=== PATIENT | male | born 1955 | race Caucasian/White ===

== ENCOUNTER 2020-01-08 12:45 | Outpatient (CLI) | payer BC ==
--- NOTE | 2020-01-08 14:49 | MRI ---
Exam: MRI cervical spine without contrast HISTORY: Neck pain. Right arm numbness and weakness since mid October 2019. COMPARISON: None FINDINGS: Appropriate T1 marrow signal intensity of the cervical vertebra. Cervical spine vertebral body heigh ts are maintained. No fracture. No significant STIR hyperintensity suggest vertebral body edema or ligamentous injury. Straightening of cervical lordosis is presumed be positional Visualized brain parenchyma, cervicomedullary junction and cervical cord and the upper thoracic cord have normal size and signal intensity. Spondylolisthesis: C3-C4: 1.8 mm of anterolisthesis. C2-C3: Adequate disc hydration. No significant loss of disc space height. Minimal posterior disc william iation. No significant central canal stenosis. Patent bilateral neural foramina C3-C4: Adequate disc hydration. No significant loss of disc space height. Posterior disc herniation a buts the thecal sac. Subarachnoid space is maintained. Mild central canal stenosis. Moderate right neural foraminal narrowing due to uncovertebral and facet hypertrophy. Patent left neural foramen. C4-C5: Mild loss of disc space height. Broad-based disc bulge abuts the thecal sac. Midline subarachn oid space is nearly effaced. Mild mass effect upon the midline cervical cord, without cord signal abnormality. Mild central canal stenosis. Moderate bilateral neural foraminal narrowing. C5-C6: Mild loss of disc space height. Broad-based disc osteophyte complex abuts the thecal sac. Suba rachnoid space is effaced. There is flattening of the cervical cord, without cord signal abnormality. Mild to moderate central canal stenosis. Moderate bilateral neural foraminal narrowing C6-C7: Mild loss of disc space height. Broad-based discussed by complex abuts the thecal sac and effa debbie the subarachnoid space. There is mass effect and deformity the cervical cord. Mild to moderate central canal stenosis. Moderate to severe right and mild left neural foraminal narrowing C7-T1: No significant central canal stenosis. Patent bilateral neural foramina IMPRESSION: Multilevel degenerative changes of the cervical spine as described above. Transcribed Date/Time: 01/08/2020 3:22 PM
== END 2020-01-08 12:46 | disposition home or self-care (01) ==
LOC: SCSMRI 12:45
PROVIDERS: ATTEND Chiropractor
DX: M47.22 Other spondylosis with radiculopathy, cervical region (principal)
CPT/HCPCS: 72141

== ENCOUNTER 2024-01-27 12:34 | Emergency (ER) | payer MEDICARE, OTHER ==
[2024-01-27 13:48] LABS: #Basophils 0.06 10x3/uL (0.0-0.2); %Basophils 0.8 % (0.0-1.0); %Eosinophils 2.6 % (0.0-10.0); %Lymphocytes 27.7 % (21.0-51.0); %Monocytes 10.2 % (0.0-10.0); %Neutrophils 58.6 % (42.0-75.0); Hematocrit 42.3 % (42.0-52.0); Hemoglobin 14.2 g/dL (14.0-18.0); Mean Corpuscular HGB CONC 33.6 g/dL (32.0-36.0); Mean Corpuscular Hemoglobin 29.7 pg (27.0-31.0); Mean Corpuscular Volume 88.5 fL (78.0-98.0); Mean Platelet Volume 9.1 fL (7.4-10.4); Platelet Count 238 10x3/uL (130-400); RBC Distribution Width 13.5 % (11.5-14.5); Red Blood Cell (RBC) Count 4.78 mill/uL (4.70-6.10)
[2024-01-27 13:58] LABS: ALT (SGPT) 16 U/L (8-55); AST (SGOT) 19 U/L (5-34); Albumin 3.9 g/dL (3.4-4.8); Alkaline Phosphatase 68 U/L (40-110); Anion Gap 12 mmol/L (10-20); BUN (Urea Nitrogen) 13 mg/dL (8.4-25.7); Bilirubin, Total 0.4 mg/dL (0.2-1.2); Calc. Creatinine Clearance 0 mL/min (70-130); Carbon Dioxide 27 mmol/L (23-31); Chloride 105 mmol/L (98-107); Estimated GFR 95; Globulin 3.3 g/dL (2.4-3.5); Glucose 102 mg/dL (80-115); Lipase 49 U/L (8-78); Potassium 4.6 mmol/L (3.5-5.1); Protein, Total 7.2 g/dL (5.8-8.1); Sodium 139 mmol/L (136-145)
== END 2024-01-27 15:03 | disposition home or self-care (01) ==
LOC: ERS 12:34
DX: R10.11 Right upper quadrant pain (principal); Z55.6 Problems related to health literacy; F17.290 Nicotine dependence, other tobacco product, uncomplicated; F17.220 Nicotine dependence, chewing tobacco, uncomplicated; R10.10 Upper abdominal pain, unspecified
CPT/HCPCS: 36415; 71045; 76705; 80053; 83690; 84484; 85025; 85379; 93005

== ENCOUNTER 2024-11-11 09:31 | Outpatient (CLI) | payer OTHER | END 2024-11-11 09:32 | disposition home or self-care (01) | LOC: BICCT 09:31 | PROVIDERS: ATTEND Internal Medicine Cardiovascular Disease | DX: R93.5 Abnormal findings on diagnostic imaging of other abdominal regions, including retroperitoneum (principal); I25.10 Atherosclerotic heart disease of native coronary artery without angina pectoris | CPT/HCPCS: 75571 ==